=== PATIENT | female | born 1965 | race Caucasian/White ===

== ENCOUNTER 2023-03-20 10:58 | Emergency (ER) | payer OTHER ==
[2023-03-20 11:32] LABS: VENOUS BASE EXCESS 2.1 (-2.0-2.0); VENOUS HCO3 26.7 MMOL/L (23.0-27.0); VENOUS O2 SATURATION 89.3 % (60.0-80.0); VENOUS PARTIAL PRESSURE CO2 41.6 mmHg (38.0-50.0); VENOUS PARTIAL PRESSURE O2 55.6 mmHg (30.0-50.0); VENOUS PH 7.426 UNITS (7.330-7.430); VENOUS STANDARD HCO3 26.2 MMOL/L
[2023-03-20 11:40] LABS: BASO # 0.1 10^3/uL (0.0-0.2); BASO % 0.8 % (0.0-1.0); EOS % 0.3 % (0.0-3.0); HEMATOCRIT 38.7 % (36.0-47.0); HEMOGLOBIN 13.2 g/dl (12.0-15.5); LYMPH # 1.1 10^3/uL (1.5-5.0); LYMPH % 12.9 % (24.0-44.0); MEAN CORPUSCULAR HEMOGLOBIN 30.1 pg (27.0-33.0); MEAN CORPUSCULAR HGB CONC 34.1 g/dl (32.0-36.5); MEAN CORPUSCULAR VOLUME 88.4 fl (80.0-96.0); MONO # 0.4 10^3/uL (0.0-0.8); MONO % 4.9 % (2.0-8.0); NEUTROPHILS # 6.9 10^3/uL (1.5-8.5); NEUTROPHILS % 80.2 % (36.0-66.0); PLATELET COUNT, AUTOMATED 240 10^3/uL (150-450); RED BLOOD COUNT 4.38 10^6/uL (4.00-5.40); WHITE BLOOD COUNT 8.6 10^3/uL (4.0-10.0)
[2023-03-20] MEDS ORDERED: MORPHINE 2 MG/ML 1ML VIAL IV ONE (11:55)
[2023-03-20 12:07] LABS: CK-MB VALUE MASS 6.3 NG/ML (<3.6); ETHYL ALCOHOL (ETHANOL) < 0.003 % (0.000-0.010)
[2023-03-20 12:08] LABS: SALICYLATE LEVEL < 3.0 MG/DL (<30)
[2023-03-20 12:09] LABS: ALBUMIN 3.9 G/DL (3.2-5.2); ALKALINE PHOSPHATASE 131 U/L (46-116); ALT/SGPT 23 U/L (7.0-40); AST/SGOT 21 U/L (<34); BILIRUBIN,DIRECT 0.2 MG/DL (<0.4); BILIRUBIN,TOTAL 0.6 MG/DL (0.3-1.2); BLOOD UREA NITROGEN 16 MG/DL (9-23); CALCIUM LEVEL 9.1 MG/DL (8.5-10.1); CARBON DIOXIDE LEVEL 26 MMOL/L (20-31); CHLORIDE LEVEL 106 MMOL/L (98-107); CPK CREATINE PHOSPHOKINASE 269 U/L (34-145); CREATININE FOR GFR 0.69 MG/DL (0.55-1.30); GLOMERULAR FILTRATION RATE > 60.0 (>51); GLUCOSE, FASTING 127 MG/DL (60-100); MB/CK RELATIVE INDEX 2.34 (< OR =4); POTASSIUM SERUM 4.2 MMOL/L (3.5-5.1); SODIUM LEVEL 140 MMOL/L (136-145); TOTAL PROTEIN 7.4 G/DL (5.7-8.2)
[2023-03-20 12:10] LABS: THYROID STIMULATING HORMONE 0.027 uIU/ML (0.55-4.78)
[2023-03-20] MEDS ORDERED: OLANZapine INTRAMUSCULAR 10MG VIAL IM ONE (12:25)
[2023-03-20 12:29] LABS: AMPHETAMINES LEVEL URINE NEGATIVE (NEGATIVE)
[2023-03-20 12:30] LABS: BARBITURATES URINE NEGATIVE (NEGATIVE); COCAINE METABOLITE URINE NEGATIVE (NEGATIVE); METHADONE URINE NEGATIVE (NEGATIVE); PHENCYCLIDINE URINE NEGATIVE (NEGATIVE)
[2023-03-20 12:36] LABS: BENZODIAZEPINES URINE POSITIVE (NEGATIVE); CANNABINOIDS URINE POSITIVE (NEGATIVE); OPIATES URINE POSITIVE (NEGATIVE)
[2023-03-20] MEDS ORDERED: LORazepam 2 MG/ML 1ML VIAL IV STA ×2 (12:38→13:48)
[2023-03-20 12:47] LABS: OSMOLALITY SERUM 296 MOSM/KG (275-295)
[2023-03-20] MEDS ORDERED: ISOVUE-370 76% 100ML VIAL As Ordered ONE ×2 (13:32→15:28)
[2023-03-20 14:01] LABS: CK-MB VALUE MASS 6.3 NG/ML (<3.6)
[2023-03-20 14:02] LABS: MB/CK RELATIVE INDEX 2.37 (< OR =4)
[2023-03-20] MEDS: fentaNYL 100 MCG/2 ML INJECTION IV PRN ×2 (15:34→15:51)
[2023-03-20 15:45] LABS: FREE T4 1.06 NG/DL (0.89-1.76)
[2023-03-20] MEDS ORDERED: ETOMIDATE INJ 20MG/10ML VIAL IV ONE (16:10)
[2023-03-20] MEDS ORDERED: ROCURONIUM BROMIDE 50MG/5ML VIAL IV ONE ×2 (16:10→19:40)
[2023-03-20] MEDS ORDERED: MIDAZOLAM 100MG/100ML-0.9%NACL 100 MG in IV 1 EA IV SCH (16:10)
[2023-03-20] MEDS ORDERED: MIDAZOLAM INJ 2MG/2ML VIAL IV ONE (16:10)
[2023-03-20] MEDS: propofoL 1,000 MG in IV 1 EA IV SCH ×4 (16:32→22:45)
[2023-03-20 18:14] LABS: CK-MB VALUE MASS 6.3 NG/ML (<3.6)
[2023-03-20 18:17] LABS: MB/CK RELATIVE INDEX 2.17 (< OR =4)
[2023-03-20 18:20] LABS: ABG HCO3 20.7 MMOL/L (22.0-26.0); ABG O2 SATURATION 93.4 % (95.0-99.0); ABG PARTIAL PRESSURE O2 84.6 mmHg (75.0-100.0); ABG STANDARD HCO3 17.3 MMOL/L. (22.0-26.0); ABG TOTAL CO2 22.6 MMOL/L (22.0-29.0)
[2023-03-20 18:23] LABS: ABG PARTIAL PRESSURE CO2 61.1 mmHg (35.0-45.0); ABG pH (ARTERIAL) 7.148 UNITS (7.350-7.450)
[2023-03-20] MEDS ORDERED: FUROSEMIDE 40MG/4ML VIAL IV ONE (19:10)
[2023-03-20] MEDS ORDERED: NITROGLYCERIN/D5W 100MCG/ML 25 MG in IV 1 EA IV SCH (19:10)
[2023-03-20] MEDS ORDERED: HEPARIN DRIP 25,000 UNITS in IV 1 EA IV SCH (19:15)
[2023-03-20] MEDS ORDERED: ASPIRIN 300 MG SUPP PR ONE (19:20)
[2023-03-20] MEDS ORDERED: HEPARIN SOD (PORCINE) 5000UNITS/ML 1ML VIAL/SYRINGE IV ONE (19:45)
[2023-03-20 19:48] LABS: ABG BASE EXCESS -11.8 (-2.0-2.0); ABG O2 SATURATION 85.8 % (95.0-99.0); ABG PARTIAL PRESSURE O2 68.7 mmHg (75.0-100.0); ABG STANDARD HCO3 15.2 MMOL/L. (22.0-26.0); ABG TOTAL CO2 22.2 MMOL/L (22.0-29.0)
[2023-03-20 19:49] LABS: ABG PARTIAL PRESSURE CO2 72.1 mmHg (35.0-45.0)
[2023-03-20 21:07] LABS: ABG BASE EXCESS -9.9 (-2.0-2.0); ABG O2 SATURATION 98.8 % (95.0-99.0); ABG PARTIAL PRESSURE CO2 46.5 mmHg (35.0-45.0); ABG PARTIAL PRESSURE O2 146.1 mmHg (75.0-100.0); ABG STANDARD HCO3 16.8 MMOL/L. (22.0-26.0); ABG TOTAL CO2 19.4 MMOL/L (22.0-29.0)
[2023-03-20 21:08] LABS: ABG pH (ARTERIAL) 7.205 UNITS (7.350-7.450)
[2023-03-20 21:09] LABS: INR 1.28; PROTHROMBIN TIME 15.6 SECONDS (12.5-14.5)
[2023-03-20 21:10] LABS: PARTIAL THROMBOPLASTIN TIME 27.2 SECONDS (24.8-34.2)
[2023-03-20 21:28] LABS: MB/CK RELATIVE INDEX 3.86 (< OR =4)
[2023-03-20] MEDS ORDERED: PIPERACILLIN/TAZOBACTAM SOD 4.5 GM in D5W MINI-BAG PLUS 50 ML IV ONE (21:35)
[2023-03-20 22:29] VITALS: TEMP 100.1
[2023-03-20 22:55] VITALS: BP 123/87; O2SAT 99
== END 2023-03-20 23:07 | disposition short-term general hospital (02) ==
LOC: M ED 10:58
DX: I21.4 Non-ST elevation (NSTEMI) myocardial infarction (principal); E87.1 Hypo-osmolality and hyponatremia; R41.82 Altered mental status, unspecified; R00.0 Tachycardia, unspecified; I45.81 Long QT syndrome
CPT/HCPCS: 31500; 36600; 51702; 70450; 71045; 71275; 74177; 80047; 80048; 80076; 80143; 80307; 81001; 82077; 82140; 82550; 82553; 82803; 83605; 83880; 83930; 84439; 84443; 85025; 85610; 85730; 87040; 87486; 87581; 87633; 87635; 87798; 93005; 93041; 94760; 96365; 96366; 96372; 96375; 96376; 99291; 99292; J1940; J2060; J2250; J2543; J3010; Q9967; S0166

== ENCOUNTER → 2023-10-09 | Outpatient (CLI) | payer OTHER | LOC: M WUC 14:44 | PROVIDERS: ATTEND Physician Assistant | DX: L97.522 Non-pressure chronic ulcer of other part of left foot with fat layer exposed (principal); M79.89 Other specified soft tissue disorders; M85.872 Other specified disorders of bone density and structure, left ankle and foot; M19.072 Primary osteoarthritis, left ankle and foot ==

== ENCOUNTER → 2023-10-26 | Outpatient (REF) | payer OTHER, MEDICAID ==
[2023-10-26 17:58] LABS: BASO # 0.1 10^3/uL (0.0-0.2); BASO % 0.9 % (0.0-1.0); EOS # 0.3 10^3/uL (0.0-0.5); EOS % 3.4 % (0.0-3.0); HEMATOCRIT 37.8 % (36.0-47.0); HEMOGLOBIN 11.7 g/dl (12.0-15.5); LYMPH % 22.3 % (24.0-44.0); MEAN CORPUSCULAR HEMOGLOBIN 28.5 pg (27.0-33.0); MEAN CORPUSCULAR VOLUME 92.2 fl (80.0-96.0); MONO # 0.5 10^3/uL (0.0-0.8); MONO % 6.1 % (2.0-8.0); NEUTROPHILS # 5.9 10^3/uL (1.5-8.5); NEUTROPHILS % 66.8 % (36.0-66.0); PLATELET COUNT, AUTOMATED 266 10^3/uL (150-450); WHITE BLOOD COUNT 8.8 10^3/uL (4.0-10.0)
[2023-10-26 18:20] LABS: ALBUMIN 3.6 G/DL (3.2-5.2); ALKALINE PHOSPHATASE 129 U/L (46-116); ALT/SGPT 21 U/L (7.0-40); AST/SGOT 14 U/L (<34); BILIRUBIN,TOTAL 0.6 MG/DL (0.3-1.2); BLOOD UREA NITROGEN 15 MG/DL (9-23); CALCIUM LEVEL 8.7 MG/DL (8.5-10.1); CARBON DIOXIDE LEVEL 31 MMOL/L (20-31); CHLORIDE LEVEL 102 MMOL/L (98-107); CHOLESTEROL LEVEL 129 MG/DL (<200); CHOLESTEROL RISK RATIO 3.23 (<5); CREATININE FOR GFR 0.74 MG/DL (0.55-1.30); GLOMERULAR FILTRATION RATE > 60.0 (>51); GLUCOSE, FASTING 111 MG/DL (60-100); HDL CHOLESTEROL 39.9 MG/DL (>40); LDL CHOLESTEROL 56.9 MG/DL (<100); MAGNESIUM LEVEL 2.1 MG/DL (1.8-2.4); NON-HDL-C 89.1 MG/DL; SODIUM LEVEL 137 MMOL/L (136-145); TOTAL PROTEIN 6.9 G/DL (5.7-8.2); TRIGLYCERIDES LEVEL 161 MG/DL (<150)
[2023-10-26 18:21] LABS: THYROID STIMULATING HORMONE 0.029 uIU/ML (0.55-4.78); TOTAL 25(OH) VITAMIN D 12.8 NG/ML (20.0-100.0)
[2023-10-26 18:34] LABS: HEMOGLOBIN A1c 5.3 % (4.0-6.0)
== END ==
LOC: M LAB REF 17:20
PROVIDERS: ATTEND Nurse Practitioner Family
DX: E66.01 Morbid (severe) obesity due to excess calories (principal); E55.9 Vitamin D deficiency, unspecified

== ENCOUNTER 2023-10-31 12:04 | Day surgery (SDC) | payer OTHER ==
[~2023-10-31] VITALS: Ht 165.1 cm; Wt 113.6 kg
[2023-10-31] MEDS ORDERED: MIDAZOLAM INJ 2MG/2ML VIAL As Ordered ONE (12:21)
[2023-10-31] MEDS ORDERED: KETOROLAC 60MG 2ML VIAL As Ordered ONE (12:21)
[2023-10-31] MEDS ORDERED: LEVO200T4 PO (12:55)
[2023-10-31] MEDS ORDERED: LISI40TA4 PO (12:55)
[2023-10-31] MEDS ORDERED: BUPR150T12 PO (12:55)
[2023-10-31] MEDS ORDERED: PROM25TA12 PO (12:55)
[2023-10-31] MEDS ORDERED: ATOR40TA75 PO (12:55)
[2023-10-31] MEDS ORDERED: CITA40TA7 PO (12:55)
[2023-10-31] MEDS ORDERED: RABE1TAB4 PO (12:55)
[2023-10-31] MEDS ORDERED: CALC600T61 PO (12:55)
[2023-10-31] MEDS ORDERED: PREG300C2 PO (12:55)
[2023-10-31] MEDS ORDERED: ROSU10TA61 PO (12:55)
[2023-10-31] MEDS: ceFAZolin SOD 2 GM in IV 1 EA IV ONE (13:02)
[2023-10-31] MEDS ORDERED: ALBUTEROL 6.7GM INHALER **FOR ANES. CART/OMNICELL ONLY As Ordered ONE (13:03)
[2023-10-31] MEDS ORDERED: BACT800T5 PO (13:07)
[2023-10-31] MEDS: LIDOCAINE 1% SDV 30ML VIAL As Ordered ONE (13:15)
[2023-10-31 16:55] VITALS: BP 133/60; TEMP 97.5; O2SAT 96
== END 2023-10-31 17:00 | disposition home or self-care (01) ==
LOC: M SDC 12:04
PROVIDERS: ATTEND Podiatrist Foot & Ankle Surgery
DX: M86.172 Other acute osteomyelitis, left ankle and foot (principal); L97.529 Non-pressure chronic ulcer of other part of left foot with unspecified severity; I10 Essential (primary) hypertension; J44.9 Chronic obstructive pulmonary disease, unspecified; E66.9 Obesity, unspecified; E78.5 Hyperlipidemia, unspecified; E03.9 Hypothyroidism, unspecified; I25.2 Old myocardial infarction; Z79.890 Hormone replacement therapy; Z79.899 Other long term (current) drug therapy; Z90.49 Acquired absence of other specified parts of digestive tract; Z90.710 Acquired absence of both cervix and uterus; Z87.891 Personal history of nicotine dependence
CPT/HCPCS: 28113; 28820; 87070; 87075; 87077; 87186; 87205; 88300; J0665; J0690; J1885; J2250

== ENCOUNTER → 2023-12-19 | Outpatient (REF) | payer OTHER ==
[~2023-12-19] MED LIST: ATOR40TA75 PO; BACT800T5 PO; BUPR150T12 PO; CALC600T61 PO; CITA40TA7 PO; LEVO200T4 PO; LISI40TA4 PO; PREG300C2 PO; PROM25TA12 PO; RABE1TAB4 PO; ROSU10TA61 PO
[2023-12-20 15:22] LABS: THYROID STIMULATING HORMONE 2.202 uIU/ML (0.55-4.78)
[2023-12-20 15:23] LABS: FOLATE 15.94 NG/ML (>5.4); FREE T4 0.85 NG/DL (0.89-1.76)
== END ==
LOC: M LAB REF 13:50
PROVIDERS: ATTEND Nurse Practitioner Family
DX: E03.9 Hypothyroidism, unspecified (principal); E53.8 Deficiency of other specified B group vitamins

== ENCOUNTER 2024-02-28 06:02 | Day surgery (SDC) | payer OTHER ==
[~2024-02-28] VITALS: Ht 167.6 cm; Wt 128.3 kg
[~2024-02-28 06:02] MED LIST changes: +LEVO175T2 PO
[2024-02-28] MEDS ORDERED: CYCL-707 PO (06:39)
[2024-02-28] MEDS ORDERED: TREL1AER INH (06:39)
[2024-02-28] MEDS ORDERED: HYDR-3363 PO (06:39)
[2024-02-28] MEDS ORDERED: ALBU8.5H INH (06:39)
[2024-02-28] MEDS ORDERED: SERT50TA29 PO (06:39)
[2024-02-28] MEDS ORDERED: NS 1,000 ML IV SCH (06:45)
[2024-02-28] MEDS ORDERED: ACETAMINOPHEN 1000MG/100ML IV BAG As Ordered ONE (07:00)
[2024-02-28] MEDS ORDERED: LIDOCAINE 2% 100MG/5ML SDV (FOR ANES.) As Ordered ONE (07:00)
[2024-02-28] MEDS ORDERED: propofoL 200 MG/20 ML VIAL As Ordered ONE (07:00)
[2024-02-28] MEDS ORDERED: ONDANSETRON 4MG 2ML VIAL As Ordered ONE (07:00)
[2024-02-28] MEDS ORDERED: MIDAZOLAM INJ 2MG/2ML VIAL As Ordered ONE (07:04)
[2024-02-28] MEDS ORDERED: dexmedeTOMIDine (4MCG/ML)200MCG/50ML BTL (PRECEDEX) As Ordered ONE (07:10)
[2024-02-28] MEDS: ceFAZolin SOD 2 GM in IV 1 EA IV ONE (07:40)
[2024-02-28] MEDS: LIDOCAINE 1% MDV 20ML VIAL As Ordered ONE (07:54)
[2024-02-28 08:38] VITALS: BP 131/79; TEMP 98.6; O2SAT 95
== END 2024-02-28 08:40 | disposition home or self-care (01) ==
LOC: M SDC 06:02
PROVIDERS: ATTEND Podiatrist Foot & Ankle Surgery
DX: M20.5X2 Other deformities of toe(s) (acquired), left foot (principal); Z86.19 Personal history of other infectious and parasitic diseases; Z87.891 Personal history of nicotine dependence; I10 Essential (primary) hypertension; K21.9 Gastro-esophageal reflux disease without esophagitis; E03.9 Hypothyroidism, unspecified; E78.5 Hyperlipidemia, unspecified; F41.9 Anxiety disorder, unspecified; F32.A Depression, unspecified; F43.10 Post-traumatic stress disorder, unspecified; J44.9 Chronic obstructive pulmonary disease, unspecified; G62.9 Polyneuropathy, unspecified; Z79.899 Other long term (current) drug therapy; Z79.51 Long term (current) use of inhaled steroids; Z88.5 Allergy status to narcotic agent
CPT/HCPCS: 28825; 76000; 88304; 88311; J0131; J0665; J0690; J1100; J2250; J2405

== ENCOUNTER → 2024-07-03 | Outpatient (REF) | payer OTHER ==
[~2024-07-03] MED LIST changes: +ALBU8.5H INH; +CYCL-707 PO; +HYDR-3363 PO; +SERT50TA29 PO; +TREL1AER INH
[2024-07-03 18:45] LABS: BASO # 0.1 10^3/uL (0.0-0.2); BASO % 0.8 % (0.0-1.0); EOS # 0.2 10^3/uL (0.0-0.5); EOS % 1.7 % (0.0-3.0); HEMATOCRIT 46.9 % (36.0-47.0); LYMPH # 2.3 10^3/uL (1.5-5.0); LYMPH % 22.7 % (24.0-44.0); MEAN CORPUSCULAR VOLUME 87.5 fl (80.0-96.0); MONO # 0.7 10^3/uL (0.0-0.8); MONO % 6.8 % (2.0-8.0); NEUTROPHILS # 6.9 10^3/uL (1.5-8.5); NEUTROPHILS % 67.4 % (36.0-66.0); PLATELET COUNT, AUTOMATED 273 10^3/uL (150-450); RED BLOOD COUNT 5.36 10^6/uL (4.00-5.40); WHITE BLOOD COUNT 10.3 10^3/uL (4.0-10.0)
[2024-07-03 18:50] LABS: ALBUMIN 3.7 G/DL (3.2-5.2); ALKALINE PHOSPHATASE 156 U/L (35-104); ALT/SGPT 32 U/L (7.0-40); AST/SGOT 24 U/L (<34); BILIRUBIN,TOTAL 0.3 MG/DL (0.3-1.2); BLOOD UREA NITROGEN 13 MG/DL (9-23); CALCIUM LEVEL 9.8 MG/DL (8.5-10.1); CARBON DIOXIDE LEVEL 28 MMOL/L (20-31); CHLORIDE LEVEL 103 MMOL/L (98-107); CREATININE FOR GFR 0.56 MG/DL (0.55-1.30); GLOMERULAR FILTRATION RATE > 60.0 (>51); GLUCOSE, FASTING 116 MG/DL (60-100); POTASSIUM SERUM 4.6 MMOL/L (3.5-5.1); SODIUM LEVEL 139 MMOL/L (136-145); TOTAL PROTEIN 7.8 G/DL (5.7-8.2)
[2024-07-03 18:51] LABS: THYROID STIMULATING HORMONE 1.247 uIU/ML (0.55-4.78)
[2024-07-03 19:10] LABS: HEMOGLOBIN A1c 6.3 % (4.0-6.0)
== END ==
LOC: M LAB REF 17:31
PROVIDERS: ATTEND Nurse Practitioner Family
DX: E66.3 Overweight (principal)

== ENCOUNTER → 2024-08-19 | Outpatient (REF) | payer OTHER ==
[~2024-08-19] MED LIST changes: -RABE1TAB4 PO; +RABE1TAB5 PO
[2024-08-19 18:47] LABS: C REACTIVE PROTEIN QUANTITATIV 2.45 MG/DL (<1.0); RHEUMATOID FACTOR QUANT 9.4 IU/ML (<14)
[2024-08-22 13:47] LABS: SSA SJOGRENS A <1.0 NEG AI (<1.0 NEG); SSB SJOGRENS B <1.0 NEG AI (<1.0 NEG)
[2024-08-22 15:43] LABS: ANA SCREEN, IFA POSITIVE (NEGATIVE)
== END ==
LOC: M LAB REF 17:44
PROVIDERS: ATTEND Nurse Practitioner Family
DX: R52 Pain, unspecified (principal)

== ENCOUNTER → 2024-10-15 | Outpatient (REF) | payer OTHER ==
[~2024-10-15] MED LIST changes: +LISI40TA10 PO; -LISI40TA4 PO
[2024-10-15 13:08] LABS: ALT/SGPT 25 U/L (7.0-40); AST/SGOT 25 U/L (<34); CALCIUM LEVEL 8.9 MG/DL (8.5-10.1); CARBON DIOXIDE LEVEL 30 MMOL/L (20-31); CHLORIDE LEVEL 100 MMOL/L (98-107); CHOLESTEROL LEVEL 144 MG/DL (<200); CHOLESTEROL RISK RATIO 4.70 (<5); CREATININE FOR GFR 0.66 MG/DL (0.55-1.30); GLOMERULAR FILTRATION RATE > 90.0 (>51); LDL CHOLESTEROL 81.6 MG/DL (<100); NON-HDL-C 113.4 MG/DL; POTASSIUM SERUM 4.6 MMOL/L (3.5-5.1); SODIUM LEVEL 139 MMOL/L (136-145); TRIGLYCERIDES LEVEL 159 MG/DL (<150)
[2024-10-15 13:16] LABS: BASO # 0.1 10^3/uL (0.0-0.2); BASO % 1.0 % (0.0-1.0); EOS # 0.1 10^3/uL (0.0-0.5); EOS % 1.8 % (0.0-3.0); LYMPH # 1.9 10^3/uL (1.5-5.0); LYMPH % 26.2 % (24.0-44.0); MONO # 0.6 10^3/uL (0.0-0.8); MONO % 7.6 % (2.0-8.0); NEUTROPHILS # 4.6 10^3/uL (1.5-8.5); NEUTROPHILS % 62.9 % (36.0-66.0); PLATELET COUNT, AUTOMATED 280 10^3/uL (150-450)
[2024-10-15 13:28] LABS: ESTIMATED AVERAGE GLUCOSE 123.0 MG/DL (60-110)
== END ==
LOC: M LAB REF 11:59
PROVIDERS: ATTEND Nurse Practitioner Family
DX: Z01.818 Encounter for other preprocedural examination (principal); R73.03 Prediabetes; E78.5 Hyperlipidemia, unspecified

== ENCOUNTER 2024-10-29 12:09 | Day surgery (SDC) | payer OTHER ==
[~2024-10-29] VITALS: Ht 167.6 cm; Wt 132.0 kg
[~2024-10-29 12:09] MED LIST changes: +ceFAZolin SOD 2 GM IV ONCE IV ONE
[2024-10-29] MEDS ORDERED: MIDAZOLAM INJ 2 MG/2 ML VIAL As Ordered ONE (13:31)
[2024-10-29] MEDS ORDERED: ceFAZolin SOD 3 GM in DEXTROSE 5% (D5W) MINI-BAG PLU 1... IV ONE (13:55)
[2024-10-29] MEDS ORDERED: ONDANSETRON 4MG 2ML VIAL As Ordered ONE (15:29)
[2024-10-29] MEDS ORDERED: dexmedeTOMIDine (4 MCG/ML) 200 MCG/50 ML BTL As Ordered ONE (15:30)
[2024-10-29] MEDS: LIDOCAINE 1% MDV 20 ML VIAL As Ordered ONE (15:37)
[2024-10-29 16:19] VITALS: BP 143/80; TEMP 97.5; O2SAT 94
== END 2024-10-29 16:28 | disposition home or self-care (01) ==
LOC: M SDC 12:09
PROVIDERS: ATTEND Podiatrist Foot & Ankle Surgery
DX: M86.172 Other acute osteomyelitis, left ankle and foot (principal); M20.62 Acquired deformities of toe(s), unspecified, left foot; I10 Essential (primary) hypertension; E03.9 Hypothyroidism, unspecified; E78.5 Hyperlipidemia, unspecified; F41.9 Anxiety disorder, unspecified; F32.A Depression, unspecified; F43.10 Post-traumatic stress disorder, unspecified; J44.9 Chronic obstructive pulmonary disease, unspecified; Z79.51 Long term (current) use of inhaled steroids; Z79.899 Other long term (current) drug therapy; Z88.5 Allergy status to narcotic agent; Z91.030 Bee allergy status; Z87.891 Personal history of nicotine dependence; R73.03 Prediabetes
CPT/HCPCS: 28820; 88305; 88311; 93005; J0665; J0690; J2250; J2405; J3010

== ENCOUNTER → 2025-01-29 | Outpatient (CLI) | payer OTHER ==
[~2025-01-29] MED LIST changes: -ceFAZolin SOD 2 GM IV ONCE IV ONE
== END ==
LOC: M WUC 14:50
PROVIDERS: ATTEND Surgery
DX: L97.522 Non-pressure chronic ulcer of other part of left foot with fat layer exposed (principal)

== ENCOUNTER → 2025-02-12 | Outpatient (REF) | payer OTHER ==
[~2025-02-12] MED LIST changes: -ROSU10TA61 PO; +ROSU10TA90 PO
[2025-02-12 17:28] LABS: ALT/SGPT 21 U/L (7.0-40); AST/SGOT 20 U/L (<34); CALCIUM LEVEL 9.0 MG/DL (8.5-10.1); CARBON DIOXIDE LEVEL 28 MMOL/L (20-31); CHLORIDE LEVEL 109 MMOL/L (98-107); CREATININE FOR GFR 0.63 MG/DL (0.55-1.30); GLOMERULAR FILTRATION RATE > 90.0 (>51); POTASSIUM SERUM 4.5 MMOL/L (3.5-5.1); SODIUM LEVEL 143 MMOL/L (136-145)
[2025-02-12 17:36] LABS: ESTIMATED AVERAGE GLUCOSE 117.0 MG/DL (60-110)
== END ==
LOC: M LAB REF 16:30
PROVIDERS: ATTEND Student in an Organized Health Care Education/Training Program
DX: R73.03 Prediabetes (principal); Z68.42 Body mass index [BMI] 45.0-49.9, adult

== ENCOUNTER → 2025-02-13 | Outpatient (REF) | payer OTHER | LOC: M SFHCWOUN 17:03 | PROVIDERS: ATTEND Surgery | DX: S91.302A Unspecified open wound, left foot, initial encounter (principal) ==

== ENCOUNTER 2025-04-01 06:24 | Day surgery (SDC) | payer OTHER ==
[~2025-04-01] VITALS: Ht 167.6 cm; Wt 116.7 kg
[~2025-04-01 06:24] MED LIST changes: +ANOR1AER INH; +ERGO500029 PO; +METF-838 PO; +ZOLO100T PO
[2025-04-01] MEDS ORDERED: ceFAZolin SOD 2 GM IV ONCE IV ONE (06:30)
[2025-04-01] MEDS ORDERED: LIDOCAINE 2% 100 MG/5 ML SDV (FOR ANES.) As Ordered ONE (07:17)
[2025-04-01] MEDS ORDERED: MIDAZOLAM INJ 2 MG/2 ML VIAL As Ordered ONE (07:18)
[2025-04-01] MEDS: LIDOCAINE 1% SDV 30 ML VIAL As Ordered ONE (07:42)
[2025-04-01] MEDS ORDERED: PHENYLephrine 500MCG 5ML (100MCG/ML) SYRINGE As Ordered ONE (08:09)
[2025-04-01 08:50] VITALS: BP 135/77; O2SAT 93
== END 2025-04-01 09:00 | disposition home or self-care (01) ==
LOC: M SDC 06:24
PROVIDERS: ATTEND Podiatrist Foot & Ankle Surgery
DX: L97.528 Non-pressure chronic ulcer of other part of left foot with other specified severity (principal); G62.9 Polyneuropathy, unspecified; Z89.432 Acquired absence of left foot; I10 Essential (primary) hypertension; E03.9 Hypothyroidism, unspecified; J44.9 Chronic obstructive pulmonary disease, unspecified; R73.03 Prediabetes; E78.00 Pure hypercholesterolemia, unspecified; F41.9 Anxiety disorder, unspecified; F32.A Depression, unspecified; Z79.899 Other long term (current) drug therapy; Z79.51 Long term (current) use of inhaled steroids; Z79.890 Hormone replacement therapy; Z79.84 Long term (current) use of oral hypoglycemic drugs; Z88.5 Allergy status to narcotic agent; Z90.711 Acquired absence of uterus with remaining cervical stump; Z90.49 Acquired absence of other specified parts of digestive tract; Z85.828 Personal history of other malignant neoplasm of skin; Z87.891 Personal history of nicotine dependence
CPT/HCPCS: 28805; 88305; 88311; J0665; J2250; J2371; J3010